=== PATIENT | female | born 1955 | race Caucasian/White ===

== ENCOUNTER → 2020-03-04 | Outpatient (CLI) | payer OTHER | END | disposition home or self-care (01) | LOC: ROC 02-19 14:06 | PROVIDERS: ATTEND Radiology Radiation Oncology | DX: C54.1 Malignant neoplasm of endometrium (principal) | CPT/HCPCS: 99214; G0463 ==

== ENCOUNTER → 2020-03-25 | Outpatient (CLI) | payer OTHER ==
[~2020-03-25] MED LIST: BECL10.62 INH
== END | disposition home or self-care (01) ==
LOC: CFH 09:22
PROVIDERS: ATTEND Radiology Radiation Oncology
DX: Z12.31 Encounter for screening mammogram for malignant neoplasm of breast (principal)
CPT/HCPCS: 77067

== ENCOUNTER 2020-05-12 07:27 | Outpatient (CLI) | payer OTHER | END 2020-05-12 23:59 | disposition home or self-care (01) | LOC: ROC 07:27 | PROVIDERS: ATTEND Radiology Radiation Oncology | DX: Z08 Encounter for follow-up examination after completed treatment for malignant neoplasm (principal); Z85.42 Personal history of malignant neoplasm of other parts of uterus; G89.3 Neoplasm related pain (acute) (chronic) | CPT/HCPCS: 99212; G0463 ==

== ENCOUNTER 2020-07-04 13:55 | Inpatient (IN) | payer OTHER ==
[~2020-07-04] VITALS: Ht 154.9 cm; Wt 136.4 kg
--- NOTE | 2020-07-04 14:12 | NUR ---
PT BROUGHT BACK FROM TRIAGE WITH CHIEF COMPLAINT OF SOB FOR ONE WEEK- CURRENTLY ON CHEMO.
--- NOTE | 2020-07-04 14:16 | NUR ---
REPORT TO ANITA
--- NOTE | 2020-07-04 14:19 | NUR ---
PATIENT STATES SHE HAS ENDOMETRIAL CANCER AND IS UNDERGOING CHEMO. SHE HAS ONE TREATMENT LEFT BEFORE SHE IS DONE. YESTERDAY SHE WENT FOR VISIT AND NURSE SAID HER OXYGEN LEVEL WAS 85% BUT THAT TODAY SHE'S BEEN CHECKING SAO2 AND WITH LIMB ONCOLOGY, AND HE RECOMMENDED SHE COME IN. ON MONITOR, RAILS UP.
[2020-07-04] MEDS ORDERED: SODIUM CHLORIDE FLUSH 10ML SYR IVF ONE (14:30)
--- NOTE | 2020-07-04 14:32 | NUR ---
PLACED ON TWO LITERS OF OXYGEN, RAILS UP ON MONITOR AWAITING CTA
[2020-07-04 15:00] LABS: BASOPHILS % (AUTO) 0 % (0-1); EOSINOPHILS % (AUTO) 0 % (1-7); LYMPHOCYTES % (AUTO) 1 % (22-44); MEAN CORPUSCULAR HEMOGLOBIN 27.6 pg (27.0-34.8); MEAN CORPUSCULAR HGB CONC 33.1 g/dL (32.4-35.8); MEAN PLATELET VOLUME 7.9 fL (7.4-10.4); MONOCYTES % (AUTO) 1 % (2-9); NEUTROPHILS % (AUTO) 98 % (42-75); PLATELET COUNT 212 x10^3/uL (130-400); RED BLOOD COUNT 4.41 x10^6/uL (3.82-5.3); RED CELL DISTRIBUTION WIDTH 23.3 % (9.6-15.2)
[2020-07-04 15:04] LABS: ANION GAP 9 mmol/L (5-15); CALCIUM 7.8 mg/dL (8.5-10.1); CHLORIDE 105 mmol/L (98-107)
[2020-07-04 15:09] LABS: ALANINE AMINOTRANSFERASE 28 U/L (12-78); ALKALINE PHOSPHATASE 75 U/L (45-117); BILIRUBIN,TOTAL 1.4 mg/dL (0.2-1.0); TOTAL PROTEIN 6.6 g/dL (6.4-8.2)
[2020-07-04 15:28] LABS: INTERNATIONAL NORMALIZED RATIO 1.02 (0.93-1.1); PROTHROMBIN TIME 10.9 Seconds (9.6-11.5)
[2020-07-04 15:32] LABS: MD SCAN
[2020-07-04] MEDS ORDERED: OMNIPAQUE 350 MG/ML, 75ML BOTTLE ONE (15:32)
[2020-07-04] MEDS ORDERED: HEPARIN 25,000 UNITS/250ML PMX 250 ML ONE (16:20)
[2020-07-04] MEDS ORDERED: HEPARIN 5,000 UNITS/ML, 1ML ONE (16:20)
[2020-07-04] MEDS ORDERED: HEPARIN 5,000 UNITS/ML, 1ML IV PRN (16:30)
[2020-07-04] MEDS ORDERED: HEPARIN 5,000 UNITS/ML, 1ML IV ONE (16:30)
[2020-07-04] MEDS ORDERED: HEPARIN 25,000 UNITS/250ML PMX 250 ML IV PRN (16:30)
--- NOTE | 2020-07-04 16:35 | NUR ---
HELPED PATIENT GET TO THE BATHROOM, THEN GET BACK INTO BED. GOT HER ON MONITOR AND RAILS UP. PATIENT PLACED BACK ON OXYGEN, RA SAT 83%. PATIENT NOW TALKING TO MD. HEPARIN GTT RUNNING.
[2020-07-04] MEDS ORDERED: SODIUM CHLORIDE FLUSH 10ML SYR IVF PRN (17:00)
[2020-07-04] MEDS ORDERED: HYDROcodone/APAP 5/325 TABLET PO PRN (17:00)
[2020-07-04] MEDS ORDERED: ONDANSETRON ODT 4 MG PO PRN (17:00)
[2020-07-04] MEDS ORDERED: SODIUM CHLORIDE 0.9% 1,000 ML IV ONE (17:00)
[2020-07-04] MEDS ORDERED: BISACODYL 10 MG SUPP PR PRN (17:00)
[2020-07-04] MEDS ORDERED: morphine SULFATE 10 MG/ML, 1ML IVPush PRN (17:00)
[2020-07-04] MEDS ORDERED: SENNA/DOCUSATE TABLET PO PRN (17:00)
[2020-07-04] MEDS ORDERED: ACETAMINOPHEN 325 MG TABLET PO PRN (17:00)
[2020-07-04] MEDS ORDERED: POLYETHYLENE GLYCOL 17 GM PACKET PO PRN (17:00)
[2020-07-04] MEDS ORDERED: ONDANSETRON 2MG/ML, 2ML IVPush PRN (17:00)
--- NOTE | 2020-07-04 17:15 | NUR ---
CALLED DR. HERNANDEZ TO ASK HIM TO CHANGE LEVEL OF CARE TO CRITICAL SINCE PATIENT WAS SCHEDULED FOR PARAFFINER. HOWEVER, PER DR. HERNANDEZ, PATIENT IS REFUSING THE EKOS PROCEDURE AND WILL GO TO TELE INSTEAD.
[2020-07-04 19:10] VITALS: BP 141/89
[2020-07-04 20:37] VITALS: BP 141/89
[2020-07-05 01:11] VITALS: BP 150/92
[2020-07-05 05:05] LABS: BASOPHILS % (AUTO) 0 % (0-1); EOSINOPHILS % (AUTO) 0 % (1-7); LYMPHOCYTES % (AUTO) 2 % (22-44); MEAN CORPUSCULAR HEMOGLOBIN 27.9 pg (27.0-34.8); MEAN CORPUSCULAR HGB CONC 32.9 g/dL (32.4-35.8); MEAN PLATELET VOLUME 7.9 fL (7.4-10.4); MONOCYTES % (AUTO) 1 % (2-9); NEUTROPHILS % (AUTO) 97 % (42-75); PLATELET COUNT 178 x10^3/uL (130-400); RED BLOOD COUNT 4.21 x10^6/uL (3.82-5.3); RED CELL DISTRIBUTION WIDTH 23.3 % (9.6-15.2)
[2020-07-05 05:08] LABS: ANION GAP 7 mmol/L (5-15); CALCIUM 8.1 mg/dL (8.5-10.1); CHLORIDE 106 mmol/L (98-107)
[2020-07-05 05:12] LABS: ALANINE AMINOTRANSFERASE 24 U/L (12-78); ALKALINE PHOSPHATASE 69 U/L (45-117); BILIRUBIN,TOTAL 1.4 mg/dL (0.2-1.0); CREATININE 0.81 mg/dL (0.55-1.02); TOTAL PROTEIN 5.9 g/dL (6.4-8.2)
[2020-07-05] MEDS: HEPARIN 5,000 UNITS/ML, 1ML IV PRN ×2 (05:53→12:47)
[2020-07-05 06:22] LABS: MD SCAN
[2020-07-05 07:25] VITALS: BP 121/78
[2020-07-05 09:08] LABS: INTERNATIONAL NORMALIZED RATIO 1.05 (0.93-1.1); PROTHROMBIN TIME 11.2 Seconds (9.6-11.5)
[2020-07-05] MEDS: WARFARIN MODERAT DOSE PROTOCOL XX SCH (10:11)
[2020-07-05] MEDS ORDERED: SIMETHICONE 80 MG CHEW TAB ONE (11:43)
[2020-07-05] MEDS ORDERED: SIMETHICONE 80 MG CHEW TAB PO PRN (12:00)
[2020-07-05 13:26] VITALS: BP 114/74
[2020-07-05] MEDS: HEPARIN 25,000 UNITS/250ML PMX 250 ML IV PRN (15:47)
[2020-07-05] MEDS ORDERED: WARFARIN 7.5 MG TABLET PO-COUM ONE (18:00)
[2020-07-05 20:00] VITALS: BP 145/75
[2020-07-06 01:25] LABS: MEAN CORPUSCULAR HEMOGLOBIN 28.4 pg (27.0-34.8); MEAN CORPUSCULAR HGB CONC 33.6 g/dL (32.4-35.8); PLATELET COUNT 163 x10^3/uL (130-400); RED BLOOD COUNT 4.17 x10^6/uL (3.82-5.3); RED CELL DISTRIBUTION WIDTH 22.8 % (9.6-15.2)
[2020-07-06 01:33] LABS: ALANINE AMINOTRANSFERASE 30 U/L (12-78); ALBUMIN 2.6 g/dL (3.4-5.0); ANION GAP 9 mmol/L (5-15); CALCIUM 7.4 mg/dL (8.5-10.1); CHLORIDE 105 mmol/L (98-107); CREATININE 0.82 mg/dL (0.55-1.02)
[2020-07-06 01:34] LABS: INTERNATIONAL NORMALIZED RATIO 1.05 (0.93-1.1); PROTHROMBIN TIME 11.2 Seconds (9.6-11.5)
[2020-07-06 01:35] LABS: ALKALINE PHOSPHATASE 70 U/L (45-117); BILIRUBIN,TOTAL 1.4 mg/dL (0.2-1.0); TOTAL PROTEIN 5.8 g/dL (6.4-8.2)
[2020-07-06 01:51] LABS: MD YES
[2020-07-06 01:54] LABS: ANISOCYTOSIS 1+; BAND#(MANUAL) 0.33 x10^3/uL; BANDS%(MANUAL) 5 % (0-7); EOS#(MANUAL) 0.07 x10^3/uL (0.0-0.4); EOS% (MANUAL) 1 % (1-7); LYMPH#(MANUAL) 0.26 x10^3/uL (1-3.4); LYMPHS% (MANUAL) 4 % (22-44); METAMYELOCYTES# (MANUAL) 0.26 x10^3/uL (0-0); METAMYELOCYTES% (MANUAL) 4 % (0-1); MONOS#(MANUAL) 0.13 x10^3/uL (0.3-2.7); MONOS% (MANUAL) 2 % (2-9); OVALOCYTES 1+; SEG#(MANUAL) 5.54 x10^3/uL (1.8-6.8); SEGS% (MANUAL) 84 % (42-75)
[2020-07-06 01:55] LABS: MICROCYTOSIS 1+; PELGER-HUET CELLS 1+
[2020-07-06 01:56] LABS: <PLATELET ESTIMATE> ADEQUATE; <PLT MORPHOLOGY> NORMAL PLT MORPH; PMNS WITH VACUOLES 1+; TEAR DROPS 1+
[2020-07-06 02:00] VITALS: BP 123/90
[2020-07-06 07:42] VITALS: BP 129/80
[2020-07-06] MEDS: HEPARIN 5,000 UNITS/ML, 1ML IV PRN (08:32)
[2020-07-06] MEDS: HEPARIN 25,000 UNITS/250ML PMX 250 ML IV PRN (11:51)
[2020-07-06] MEDS: WARFARIN MODERAT DOSE PROTOCOL XX SCH (13:24)
[2020-07-06 13:45] VITALS: BP 135/79
[2020-07-06] MEDS ORDERED: WARFARIN 7.5 MG TABLET PO-COUM ONE (18:00)
[2020-07-06 19:33] VITALS: BP 135/78
[2020-07-07 02:19] VITALS: BP 127/82
[2020-07-07 05:08] LABS: MEAN CORPUSCULAR HEMOGLOBIN 28.5 pg (27.0-34.8); MEAN CORPUSCULAR HGB CONC 33.5 g/dL (32.4-35.8); MEAN PLATELET VOLUME 7.8 fL (7.4-10.4); PLATELET COUNT 146 x10^3/uL (130-400); RED BLOOD COUNT 4.14 x10^6/uL (3.82-5.3); RED CELL DISTRIBUTION WIDTH 22.1 % (9.6-15.2)
[2020-07-07 05:17] LABS: ANION GAP 7 mmol/L (5-15); CALCIUM 7.3 mg/dL (8.5-10.1); CHLORIDE 106 mmol/L (98-107); CREATININE 0.77 mg/dL (0.55-1.02); INTERNATIONAL NORMALIZED RATIO 1.33 (0.93-1.1); PROTHROMBIN TIME 14.2 Seconds (9.6-11.5)
[2020-07-07 05:52] LABS: MD YES
[2020-07-07] MEDS: HEPARIN 25,000 UNITS/250ML PMX 250 ML IV PRN (05:53)
[2020-07-07 05:56] LABS: BAND#(MANUAL) 0.11 x10^3/uL; BANDS%(MANUAL) 4 % (0-7); EOS#(MANUAL) 0.05 x10^3/uL (0.0-0.4); EOS% (MANUAL) 2 % (1-7); LYMPH#(MANUAL) 0.16 x10^3/uL (1-3.4); LYMPHS% (MANUAL) 6 % (22-44); METAMYELOCYTES# (MANUAL) 0.05 x10^3/uL (0-0); METAMYELOCYTES% (MANUAL) 2 % (0-1); MONOS#(MANUAL) 0.16 x10^3/uL (0.3-2.7); MONOS% (MANUAL) 6 % (2-9); SEG#(MANUAL) 2.16 x10^3/uL (1.8-6.8); SEGS% (MANUAL) 80 % (42-75)
[2020-07-07 05:57] LABS: <PLATELET ESTIMATE> ADEQUATE; <PLT MORPHOLOGY> NORMAL PLT MORPH; ANISOCYTOSIS 1+; MICROCYTOSIS 1+; PELGER-HUET CELLS 1+; PMNS WITH VACUOLES 1+
[2020-07-07 06:45] VITALS: BP 136/78
[2020-07-07] MEDS ORDERED: POTASSIUM PHOSPHATE 22 MEQ in SODIUM CHLORIDE 0.9% 500 ML IV ONE (09:00)
[2020-07-07] MEDS ORDERED: MAGNESIUM SULFATE PMX 4GM/100M 100 ML IVPB ONE (09:00)
[2020-07-07] MEDS: MAGNESIUM CHLORIDE 64 MG TABLET.DR PO SCH (09:16)
[2020-07-07] MEDS: WARFARIN MODERAT DOSE PROTOCOL XX SCH (10:58)
[2020-07-07] MEDS ORDERED: CALC-534 PO (11:03)
[2020-07-07] MEDS ORDERED: ASCO500T8 PO (11:03)
[2020-07-07] MEDS ORDERED: MULT-658 PO (11:03)
[2020-07-07] MEDS: CALCIUM/VITAMIN D3 250-125 TABLET PO SCH ×2 (11:30→20:32)
[2020-07-07] MEDS: MULTIVITAMINS/MINERALS TABLET PO SCH (11:44)
[2020-07-07 12:02] VITALS: BP 115/78
[2020-07-07] MEDS ORDERED: RIVA1TAB PO (12:38)
[2020-07-07] MEDS: RIVAROXABAN 15 MG TABLET PO SCH (16:57)
[2020-07-07] MEDS: ASCORBIC ACID 500 MG TABLET PO SCH (16:57)
[2020-07-07 20:00] VITALS: BP 131/79
[2020-07-08 02:00] VITALS: BP 127/84
[2020-07-08 05:40] LABS: INTERNATIONAL NORMALIZED RATIO 1.56 (0.93-1.1); PROTHROMBIN TIME 16.5 Seconds (9.6-11.5)
[2020-07-08 06:58] VITALS: BP 123/75
[2020-07-08] MEDS ORDERED: POTASSIUM PHOSPHATE 44 MEQ in SODIUM CHLORIDE 0.9% 500 ML IV ONE (08:30)
[2020-07-08] MEDS ORDERED: MAGNESIUM SULFATE PMX 4GM/100M 100 ML IVPB ONE (08:30)
[2020-07-08] MEDS: MULTIVITAMINS/MINERALS TABLET PO SCH (08:44)
[2020-07-08] MEDS: RIVAROXABAN 15 MG TABLET PO SCH (08:44)
[2020-07-08] MEDS: MAGNESIUM CHLORIDE 64 MG TABLET.DR PO SCH (08:44)
[2020-07-08] MEDS: ASCORBIC ACID 500 MG TABLET PO SCH (08:44)
[2020-07-08] MEDS: CALCIUM/VITAMIN D3 250-125 TABLET PO SCH (08:44)
[2020-07-08 09:31] LABS: ANION GAP 5 mmol/L (5-15); CALCIUM 8.6 mg/dL (8.5-10.1); CHLORIDE 107 mmol/L (98-107); CREATININE 0.83 mg/dL (0.55-1.02)
[2020-07-08 13:49] VITALS: BP 138/69
== END 2020-07-08 15:30 | disposition home or self-care (01) | DRG 175 ==
LOC: ED 15:38 → EDIP 16:58 → 5SO 19:10 → DCLOUNGE 07-08 15:25
PROVIDERS: ADMIT Family Medicine; ATTEND Internal Medicine
DX: I26.09 Other pulmonary embolism with acute cor pulmonale (principal); J96.01 Acute respiratory failure with hypoxia; D68.59 Other primary thrombophilia; R65.10 Systemic inflammatory response syndrome (SIRS) of non-infectious origin without acute organ dysfunction; Z68.43 Body mass index [BMI] 50.0-59.9, adult; C54.1 Malignant neoplasm of endometrium; R79.89 Other specified abnormal findings of blood chemistry; E66.01 Morbid (severe) obesity due to excess calories; E80.6 Other disorders of bilirubin metabolism; I07.1 Rheumatic tricuspid insufficiency; Z85.42 Personal history of malignant neoplasm of other parts of uterus; Z86.711 Personal history of pulmonary embolism; Z87.891 Personal history of nicotine dependence; Z83.3 Family history of diabetes mellitus; Z83.6 Family history of other diseases of the respiratory system; Z82.49 Family history of ischemic heart disease and other diseases of the circulatory system; Z79.899 Other long term (current) drug therapy
CPT/HCPCS: 36415; 71045; 71275; 80048; 80053; 83735; 84100; 85025; 85520; 85610; 85730; 93005; 93306; 96374; 96375; 99291; G0378; J1644; Q9967; J3475; J7040

== ENCOUNTER 2020-09-11 08:25 | Outpatient (CLI) | payer OTHER ==
[~2020-09-11 08:25] MED LIST changes: +ASCO500T8 PO; +CALC-534 PO; +MULT-658 PO; +RIVA1TAB PO
== END 2020-09-11 23:59 | disposition home or self-care (01) ==
LOC: ROC 08:25
PROVIDERS: ATTEND Radiology Radiation Oncology
DX: Z08 Encounter for follow-up examination after completed treatment for malignant neoplasm (principal); C54.1 Malignant neoplasm of endometrium; J96.10 Chronic respiratory failure, unspecified whether with hypoxia or hypercapnia; E66.01 Morbid (severe) obesity due to excess calories; Z68.43 Body mass index [BMI] 50.0-59.9, adult; Z79.899 Other long term (current) drug therapy; Z87.891 Personal history of nicotine dependence; G89.3 Neoplasm related pain (acute) (chronic)
CPT/HCPCS: 99212; G0463